=== PATIENT | male | born 1950 | race Caucasian/White ===

== ENCOUNTER 2022-03-28 10:02 | Outpatient (CLI) | payer MEDICARE, OTHER | END 2022-03-28 10:03 | disposition home or self-care (01) | LOC: CSHLAB 10:02 | PROVIDERS: ATTEND Family Medicine | DX: Z20.822 Contact with and (suspected) exposure to COVID-19 (principal) | CPT/HCPCS: 87811 ==

== ENCOUNTER 2022-03-29 09:55 | Outpatient (CLI) | payer MEDICARE, OTHER | END 2022-03-29 09:56 | disposition home or self-care (01) | LOC: CSHRAD 09:55 | PROVIDERS: ATTEND Internal Medicine | DX: J69.0 Pneumonitis due to inhalation of food and vomit (principal); R05.3 Chronic cough; J47.1 Bronchiectasis with (acute) exacerbation; R93.89 Abnormal findings on diagnostic imaging of other specified body structures | CPT/HCPCS: 74230 ==